=== PATIENT | female | born 1965 ===

== ENCOUNTER → 2019-03-05 | Outpatient (CLI) | payer OTHER ==
[~2019-03-05] MED LIST: Iopamidol 612 MG/ML 100 ML Bottle IVPUSH ONE
[2019-03-05 12:38] LABS: ANION GAP 15.2; CHLORIDE,CL 95 mmol/L (101-111); SODIUM,NA 130 mmol/L (135-145)
--- NOTE | 2019-03-05 13:20 | CT ---
Clinical history: 53-year-old hypertensive 200 pound female with RLQ pain, fever, diarrhea and white blood cell count 22,200. Scan technique: Volume acquisition of data from the abdomen and pelvis obtained without oral contrast but during intravenous infusion 100 cc nonionic Isovue contrast (3 cc/s via injector) while patient was lying supine on the Siemens multi slice scanner [place], [place]. All data archived in the PACS system for storage, reformatting and study. Interpretation: Abnormal. 1. *Appendix located posteriorly RLQ toward the midline has a central calcification, is edematous and inflammatory fat. 2. No abscess and no sign of mechanical bowel obstruction, ascites or free intraperitoneal air. 3. Fatty liver. Gallbladder, stomach, spleen, pancreas and adrenal glands unremarkable. 4. Normal reniform size, axis and configuration. No sign of renal cortical mass lesion, nephrolithiasis or obstructive uropathy. 5. No abdominal or pelvic mass lesion and no sign of mechanical bowel obstruction or retroperitoneal lymphadenopathy. 6. Lung bases are clear. CONCLUSION: Acute appendicitis. Critical examination. Phone message primary care provider 131 hours 05 mar 2019 (technologist notified clinic staff).
== END ==
LOC: DL.CT 12:02
PROVIDERS: ATTEND Nurse Practitioner
DX: R10.31 Right lower quadrant pain (principal); R50.9 Fever, unspecified; R19.7 Diarrhea, unspecified; R52 Pain, unspecified; K35.80 Unspecified acute appendicitis
CPT/HCPCS: 36415; 74177; 80053; 85025; Q9967

== ENCOUNTER 2023-01-04 13:35 | Emergency (ER) | payer OTHER ==
[2023-01-04 14:34] VITALS: BP 120/69; PULSE 77
[2023-01-04 14:47] LABS: ANION GAP 13.6 mEq/L (7-13)
== END 2023-01-04 16:02 | disposition home or self-care (01) ==
LOC: DL.ED 13:35
DX: R19.7 Diarrhea, unspecified (principal); E78.00 Pure hypercholesterolemia, unspecified; I10 Essential (primary) hypertension; K21.9 Gastro-esophageal reflux disease without esophagitis; M06.9 Rheumatoid arthritis, unspecified; Z98.890 Other specified postprocedural states; Z90.710 Acquired absence of both cervix and uterus; Z91.048 Other nonmedicinal substance allergy status; Z88.8 Allergy status to other drugs, medicaments and biological substances; Z88.5 Allergy status to narcotic agent; Z79.82 Long term (current) use of aspirin; Z79.899 Other long term (current) drug therapy
CPT/HCPCS: 36415; 80053; 81001; 83690; 84484; 85025; 93005; 93010; 99284; 99285